=== PATIENT | male | born 1985 | race Two or more races ===

== ENCOUNTER 2024-08-16 05:12 | Emergency (ER) | payer OTHER ==
[~2024-08-16] VITALS: Ht 180.3 cm; Wt 79.5 kg
[2024-08-16] MEDS ORDERED: TRAM50TA2 PO (08:22)
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
[2024-08-16] MEDS: HYDROcodone-ACET 10/325MG TAB PO ONE (08:41)
--- NOTE | 2024-08-16 08:47 | DVH ---
Clinical History: pain Comparison: None Technique: Duplex Doppler evaluation of the deep venous system of the right lower extremity from the common fem oral vein to the popliteal vein including color Doppler and spectral/pulsed waveform analysis was per formed. Findings: The common femoral vein demonstrates appropriate compressibility and waveform variability. There is compressibility/patency of the great saphenous vein at the proximal thigh. The femoral vein demonstrates appropriate compressibility and waveform variability. The deep femoral vein demonstrates appropriate compressibility and waveform variability. The popliteal vein demonstrates appropriate compressibility and waveform variability. There is color flow in the tibioperoneal trunk and posterior tibial vein. Impression: 1. No deep venous thrombosis in the right lower extremity. If clinical concern/symptoms persist or w orsen, short-interval follow-up study is suggested.
[2024-08-16 09:45] VITALS: BP 122/79; PULSE 76; RESP 15; O2SAT 100
== END 2024-08-16 10:21 | disposition home or self-care (01) ==
LOC: ER 05:12
DX: S39.011A Strain of muscle, fascia and tendon of abdomen, initial encounter (principal); F17.210 Nicotine dependence, cigarettes, uncomplicated; I82.401 Acute embolism and thrombosis of unspecified deep veins of right lower extremity; X58.XXXA Exposure to other specified factors, initial encounter; Y93.89 Activity, other specified; Y92.89 Other specified places as the place of occurrence of the external cause; Y99.8 Other external cause status
CPT/HCPCS: 93971

== ENCOUNTER 2024-10-13 02:01 | Emergency (ER) | payer OTHER ==
[~2024-10-13] VITALS: Ht 180.3 cm; Wt 75.5 kg
[~2024-10-13 02:01] MED LIST: TRAM50TA2 PO
[2024-10-13 02:18] VITALS: BP 113/77; PULSE 98; RESP 18; TEMP 97.7; O2SAT 97
[2024-10-13] MEDS ORDERED: CLIN1CAP70 PO (02:54)
[2024-10-13] MEDS ORDERED: CEPH500C PO (02:54)
[2024-10-13] MEDS ORDERED: IBUP-1456 PO (02:54)
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
--- NOTE | 2024-10-13 04:01 | DVH ---
Examination: [facility] Clinical indication: RIGHT WRIST PAIN. Comparison: None. Technique: Three views of the right wrist were obtained. Findings: No acute fracture or dislocation. The scapholunate interval is preserved. There is ulnar neutral variance. Mineralization is normal. 5th metacarpal pit noted. Joint spaces normal. The soft tissues are unremarkable. Impression: 1. No acute fracture or dislocation by plain radiography. 2. Advised further evaluation with CT/MRI right wrist without contrast if clinically indicated. Electronically Signed 10/13/2024 04:01 Mitzi Dodd
--- NOTE | 2024-10-13 04:14 | DVH ---
Examination: [facility] CLINICAL INDICATION: RIGHT THUMB PAIN. COMPARISON: None. TECHNIQUE: Three views of the right hand were evaluated. FINDINGS: There is no evidence of acute fracture, dislocation or osseous lesion. The carpal bones are well aligned. Fifth metacarpal pit noted. The joint spaces are well-preserved. The soft tissues are unremarkable. IMPRESSION: 1. No acute fracture or dislocation by plain radiography. 2. Advised further evaluation with CT/MRI right hand without contrast if clinically indicated. Electronically Signed 10/13/2024 04:13 Mitzi Dodd
== END 2024-10-13 04:25 | disposition home or self-care (01) ==
LOC: ER 02:01
DX: S63.501A Unspecified sprain of right wrist, initial encounter (principal); L03.011 Cellulitis of right finger; F17.210 Nicotine dependence, cigarettes, uncomplicated; F12.10 Cannabis abuse, uncomplicated; V29.99XA Rider (driver) (passenger) of other motorcycle injured in unspecified traffic accident, initial encounter; Y93.89 Activity, other specified; Y92.89 Other specified places as the place of occurrence of the external cause; Y99.8 Other external cause status
CPT/HCPCS: 29125; 73110; 73130